=== PATIENT | male | born 1980 | race Caucasian/White ===

== ENCOUNTER 2018-09-22 20:14 | Emergency (ER) | payer OTHER ==
[2018-09-22] MEDS ORDERED: ETOMIDATE 2 MG/ML 10 ML VIAL IVP STA (20:43)
--- NOTE | 2018-09-22 21:01 | XR ---
Right ankle 2 views. History pain. Comparison none. FINDINGS: There is a posterior dislocation of the ankle joint. There is oblique fracture distal shaft of the fi bula with anterior angulation. There is transverse fracture of the medial malleolus. There is also la teral subluxation of the talus. There is an Achilles calcaneal spur. Posterior malleolus appears inta ct. IMPRESSION: There is posterior bimalleolar fracture dislocation of the right ankle.
[2018-09-22] MEDS ORDERED: PROPOFOL 10 MG/ML 20 ML VIAL IV ONE (21:15)
--- NOTE | 2018-09-22 21:32 | XR ---
Right ankle 2 views. History post reduction. Comparison today. FINDINGS: There is bimalleolar fracture of the right ankle. There is a cast. There is anatomic reduction of the ankle joint. Major fragments are in reasonable position. The medial malleolus fragment is not well s een. There is reduction of the dislocated ankle joint. IMPRESSION: Significant improvement.
[2018-09-22 21:56] VITALS: PULSE 80; RESP 18
--- NOTE | 2018-09-22 22:17 | ED ---
General Adult HPI - General Chief complaint: Extremity Injury, Lower Stated complaint: Fall, Ankle injury Time Seen by Provider: 09/22/18 20:17 Source: patient, EMS, RN notes reviewed, old records reviewed Mode of arrival: EMS Limitations: no limitations - History of Present Illness Initial comments: 38 -year-old male presents status post fall with right ankle injury. Patient brought in by EMS with obvious deformity of the right ankle, diminished past several days palpable by EMS. Patient complaining of 5 out of 10 pain in the right ankle. No knee pain, no hip pain, no head neck or back injury. Patient is otherwise healthy. - Related Data Previous Rx's Medication Instructions Recorded Ibuprofen [Motrin] 600 mg PO Q8HR PRN #24 tab 09/22/18 Allergies Allergy/AdvReac Type Severity Reaction Status Date / Time No Known Allergies Allergy Verified 09/22/18 21:22 Review of Systems ROS Statement: Those systems with pertinent positive or pertinent negative responses have been documented in the HPI. ROS Other: All systems not noted in ROS Statement are negative. Past Medical History Past Medical History: No Reported History History of Any Multi-Drug Resistant Organisms: None Reported Past Surgical History: No Surgical Hx Reported Past Psychological History: No Psychological Hx Reported Smoking Status: Never smoker Past Alcohol Use History: None Reported Past Drug Use History: None Reported General Exam Limitations: no limitations General appearance: alert, in no apparent distress Head exam: Present: atraumatic, normocephalic Eye exam: Present: normal appearance, PERRL, EOMI Neck exam: Present: normal inspection. Absent: tenderness, meningismus Respiratory exam: Present: normal lung sounds bilaterally. Absent: respiratory distress, wheezes Cardiovascular Exam: Present: regular rate, normal rhythm GI/Abdominal exam: Present: soft. Absent: distended, tenderness Extremities exam: Present: other (Deformity right ankle, no injury to the knee, or hip. There is distal past prior to reduction although weak. Sensation intact) Course Vital Signs 09/22/18 09/22/18 09/22/18 20:22 20:43 21:00 Temperature 98.6 F Pulse Rate 93 82 75 Respiratory 16 20 22 Rate Blood Pressure 160/107 165/105 138/100 O2 Sat by Pulse 97 99 99 Oximetry 09/22/18 09/22/18 21:03 21:55 Temperature Pulse Rate 81 80 Respiratory 20 18 Rate Blood Pressure 150/97 154/97 O2 Sat by Pulse 100 99 Oximetry Procedures - [place] Protocol (Time Out) Procedure Performed:: reduction right ankle Performing Provider: Bryce Tong Nurse: Walter Farr Respiratory Therapist: Sondra Renteria Patient Identification (2 identifiers required): Chart, Verbal, Arm Band, Name, Birthdate, Medical Record Number Site: right ankle Site Marked: Yes Final Confirmation: Procedure, Site, Patient Position, Radiographs, Confirmed w/ Provider - Orthopedic Fracture Reduction Fracture #1 Consent Obtained: written consent Side: right Fracture Reduction Location: tibia, fibula Analgesia: procedural sedation Technique: direct manipulation, traction/counter-traction Post Reduction X-rays Demonstrate: anatomical reduction Post-Reduction Neuro Exam: intact Post-Reduction Vascular Exam: intact Splint Applied: Yes Patient Tolerated Procedure: well - Orthopedic Splinting/Casting Injury #1 Side: right Lower Extremity Injury Location: ankle Lower Extremity Immobilizer: posterior splint, stirrup splint Other Orthopedic Equipment: crutches - Procedural Sedation Procedural Sedation Start Time: 20:43 Procedural Sedation Stop Time: 21:20 Indications: fracture/dislocation reduction ASA Class: I Mallampati Airway Score: 2 Preparation: laboratory monitor applied, pulse oximeter, capnometry used, supplemental O2 applied, suction/airway equipment at bedside, IV secured IV Propofol Dose (mgs): 100 Complications: none Patient Tolerated Procedure: well Medical Decision Making - Medical Decision Making 38 -year-old male with fracture dislocation right ankle. This is reduced under conscious sedation in the emergency department. Patient tolerates well. He is placed in a posterior mold and ankle stirrup. I did discuss case with Dr. Gomez, recommend outpatient follow-up. Recommended elevation and ice. Patient prescribed Motrin, he does not want any narcotic pain medication. Disposition Clinical Impression: Bimalleolar ankle fracture, Ankle dislocation Disposition: HOME SELF-CARE Condition: Good Instructions (If sedation given, give patient instructions): Moderate Sedation (ED), Ankle Fracture (ED), Ankle Dislocation (ED) Prescriptions: Ibuprofen [Motrin] 600 mg PO Q8HR PRN #24 tab PRN Reason: Pain Is patient prescribed a controlled substance at d/c from ED?: No Referrals: None,Stated [Primary Care Provider] - 1-2 days Kang Gomez MD [Medical Doctor] - 1-2 days Time of Disposition: 22:16
[2018-09-22 22:29] VITALS: BP 154/84; TEMP 98
== END 2018-09-22 22:29 | disposition home or self-care (01) ==
LOC: EC 20:14
DX: S82.841A Displaced bimalleolar fracture of right lower leg, initial encounter for closed fracture (principal); R29.898 Other symptoms and signs involving the musculoskeletal system; W00.0XXA Fall on same level due to ice and snow, initial encounter; Y92.89 Other specified places as the place of occurrence of the external cause
CPT/HCPCS: 73600; 99284; 27810; 99152; 99153; J2704

== ENCOUNTER 2018-10-07 12:47 | Day surgery (SDC) | payer OTHER ==
[~2018-10-07 12:47] MED LIST: DEXAMETHASONE SOD PHOSPHATE 10 MG/ML 1 ML VIAL IV ONE; HYDROmorphone 0.5 MG/0.5 ML SYRINGE IVP PRN; LIDOCAINE 1% 20 ML VIAL (10MG/ML) FOR IV START INTRADERMA PRN; MIDAZOLAM 2 MG/2 ML VIAL IV PRN; ONDANSETRON 4 MG/2 ML VIAL IVP ONE; SCOPOLAMINE 1.5MG/72HR PATCH TRANSDERM ONE; ceFAZolin IN SWFI 2 GM/20 ML SYRINGE IVP ONE
[2018-10-07] MEDS: LACTATED RINGERS 1,000 ML IV SCH ×2 (13:25→22:28)
[2018-10-07] MEDS ORDERED: MIDAZOLAM 2 MG/2 ML VIAL IVP ONE (14:52)
[2018-10-07] MEDS ORDERED: SUCCINYLCHOLINE CHLORIDE 100 MG/5 ML SYR IV ONE (15:13)
[2018-10-07] MEDS ORDERED: LIDOCAINE 1% INJ 10MG/ML (20 ML MDV) ONE (15:13)
[2018-10-07] MEDS ORDERED: KETOROLAC 30 MG/ML 1 ML VIAL ONE (15:13)
[2018-10-07] MEDS ORDERED: PROPOFOL 10 MG/ML 20 ML VIAL IV ONE (15:13)
[2018-10-07] MEDS ORDERED: ROCURONIUM BROMIDE 10 MG/ML 10 ML VIAL IV ONE (15:13)
[2018-10-07] MEDS ORDERED: BUPIVACAIN-EPI 0.5%-1:200,000 30 ML VIAL ONE (15:13)
[2018-10-07] MEDS ORDERED: fentaNYL (PF) 50 MCG/ML 2 ML AMP ONE (15:13)
[2018-10-07] MEDS ORDERED: HYDROmorphone (PF) 1 MG/ML ONE (15:13)
[2018-10-07] MEDS ORDERED: MIDAZOLAM 2 MG/2 ML VIAL ONE (15:13)
--- NOTE | 2018-10-07 15:30 | P.ONQ ---
Anesthesiology Proc Note - PNB - Peripheral Nerve Block Performed Right Adductor Canal Single Time Out Performed: Yes Procedure Start Time: 14:51 Procedure Stop Time: 14:55 Indication: Acute Post-Operative Pain, Analgesia, Requested by physician Sedation Type: Awake Preparation: Sterile Prep Position: Supine Catheter: None Needle Types: On-Q Needle Size: 100mm (4") Needle Gauge: 21 Technique: Ultrasound Injectate: Other (see comment) (0.5% bupivacaine with 1:200k epi 20cc) Blood Aspirated: No Pain Paresthesia on Injection Noted: No Resistance on Injection: Normal Events: Uneventful and Well Tolerated
--- NOTE | 2018-10-07 15:31 | P.ONQ ---
Anesthesiology Proc Note - PNB - Peripheral Nerve Block Performed Right Popliteal Single Time Out Performed: Yes Procedure Start Time: 14:56 Procedure Stop Time: 15:01 Indication: Acute Post-Operative Pain, Analgesia, Requested by physician Sedation Type: Awake Preparation: Sterile Prep Position: Supine Catheter: None Needle Types: On-Q Needle Size: 100mm (4") Needle Gauge: 21 Technique: Ultrasound Injectate: Other (see comment) (0.5 bupivaciane with 1:200k epi 20cc) Blood Aspirated: No Pain Paresthesia on Injection Noted: No Resistance on Injection: Normal Events: Uneventful and Well Tolerated
[2018-10-07] MEDS ORDERED: HYDROcodone/APAP 5-325MG 1 EACH TAB PO PRN ×2 (17:38)
[2018-10-07] MEDS ORDERED: hydrOXYzine PAMOATE 25 MG CAP PO PRN (17:38)
[2018-10-07] MEDS ORDERED: SENNOSIDES-DOCUSATE SODIUM 1 EACH TAB PO PRN (17:38)
[2018-10-07] MEDS ORDERED: ONDANSETRON 4 MG/2 ML VIAL IVP PRN (17:38)
[2018-10-07] MEDS ORDERED: HYDROmorphone 0.5 MG/0.5 ML SYRINGE IVP PRN ×2 (17:38)
[2018-10-07] MEDS ORDERED: HYDROmorphone 1 MG/ML 1 ML SYRINGE IVP PRN (17:38)
--- NOTE | 2018-10-07 17:41 | P.OP ---
Date of Procedure: 10/07/18 Preoperative Diagnosis: Right trimalleolar ankle fracture dislocation Postoperative Diagnosis: Same Procedure(s) Performed: 1. Open reduction internal fixation of right Riavs C lateral malleolus fracture and medial malleolus fracture 2. Open reduction internal fixation of right ankle syndesmotic disruption 3. Nonoperative management of right posterior malleolus and Chaput tubercle avulsion fractures 4. Manual application of joint stress by physician for radiography, right ankle 5. Application of short-leg splint by physician, right ankle Anesthesia: ENDER, regional Surgeon: Kang Gomez [employer] Magistrate #1: Sukhi Burrell Estimated Blood Loss (ml): 50 IV fluids (ml): 1,200 Pathology: none sent Condition: stable Disposition: PACU Indications for Procedure: The patient is a very pleasant is a healthy 38-year-old male who sustained an isolated right ankle fracture dislocation several weeks ago when he slipped and fell into a hole. He was initially seen in the ER where closed reduction was performed. He was then referred to our office. I met with the patient preoperatively discuss treatment. I recommended operative fixation of his ankle. We discussed the potential risks and complications of surgery including but not limited to risk of anesthesia, superficial infection, deep infection, delayed wound healing, superficial wound necrosis, nonunion of the fracture site , malunion of the fracture site, not reduction of the syndesmosis, malreduction of the ankle mortise, failure of fixation hardware, postoperative displacement of the fracture or ankle mortise, systematic hardware, chronic pain, chronic swelling, DVT, PE, and inability to regain preinjury level of function, posterior medical arthritis, and possibly loss of life or limb. The patient voiced his understanding of all these potential complications and also acknowledged the potential for other less common complications. He provided his verbal and written consent to go forward with surgery. Description of Procedure: Patient is a propofol in the correct right leg was marked with my initials. I reviewed the consent form with the patient and his family. All their questions were answered. The patient was then brought back to the operating room after popliteal and saphenous nerve block was given by anesthesia. He was transferred onto an or table her preoperative antibiotics and a general anesthetic were administered. A tourniquet was then applied to the proximal aspect of the right leg. Comparison x-rays of the left ankle were taken including a true talar dome overlap lateral. The left leg was secured to the table with foam and tape. A bump was placed under the right buttock internally rotating the leg. A ramp was placed under the right leg. The right leg was then prepped and draped in the standard sterile fashion. A timeout was then performed identifying the correct patient, operative extremity, and procedure. The patient's leg was elevated, exsanguinated with an Esmarch bandage, and the tourniquet was inflated to 250 mmHg. I began by outlining a longitudinal lateral incision over the distal fibula. Skin incision was made with a scalpel. Dissection was carried down carefully through subcutaneous tissue with tenotomy scissors. The superficial peroneal nerve was identified and carefully retracted. The fascia over the peroneal muscles was incised proximally and the periosteum over the fibula was incised distally. The fracture was carefully identified and debrided. Lobster claws were used to grasp the shaft of the fibula proximal and distal to the fracture and longitudinal traction was pulled. The fracture edges were keyed in and the fibula was anatomically reduced. A nonlocking 2.0 mm lag screw was placed across the fracture generating excellent compression. A 12 hole one third tubular plate was contoured over the patient's fibula. Nonlocking screws were placed proximally and distally to the fracture bringing the plate down to bone. Additional nonlocking screws were placed proximally and distally to the fracture so that there were 3 points of fixation proximally and distally. Attention was then turned medially. A longitudinal incision was made over the small medial malleolus fracture. The fracture was identified and carefully debrided. A 2.0 mm drill hole was made just proximal to the fracture. One kaz of a vudny-eg-oxrcy reduction clamp was placed in this hole and the second kaz was placed directly over the tip of the medial malleolus. A 2.0 mm drill was used to create a path for a fully threaded 2.7 screw across the medial malleolus avulsion fracture. Due to the size of the fracture fragment I was not able to place a second screw. The reduction clamp was removed and the reduction of the medial malleolus was maintained with the single screw. Attention was then once again turned laterally. Dissection was carried anterior to the distal fibula to visualize the incisura. There was a very small avulsion fracture fragment off of Chaput's tubercle. The fibula was gently reduced into the incisura using the thumb technique and then an 8 cm Rivas reduction clamp was used to hold the fibula reduced within the incisura. A single 4.0 mm syndesmotic screw was placed from the fibula into the tibia. The Chaput tubercle fragment was not large enough to accommodate a screw. Final fluoroscopic images were taken including a to mortise view which showed the fibula out to length, both fractures reduced, and the talus anatomically reduced within the ankle mortise. A manual external rotation stress x-ray was taken which showed no widening of the medial clear space or incisura area a true lateral of the ankle showed the talar dome centered under the plafond and. The fibula appeared symmetric to the comparison x-ray of the contralateral ankle. Both wounds were copiously irrigated and closed in layers. Brown quarter inch stretchy Steri-Strips were placed over both incisions. A sterile dressing consisting of Betadine soaked Adaptic, 4 x 4, and web roll was applied. A bulky Michael splint was placed with the ankle at neutral. The patient was then awoken from his anesthetic, transferred to a gurney, and brought to PACU without the procedure well. Sukhi Ashanti PAC was required as a skilled physician assistant for patient positioning, surgical exposure, retraction, reduction of fracture, closure of wounds and application of splint. Plan: The patient is going to be discharged home as an outpatient if his pain is adequately controlled with the block. He is to aggressively ice and elevate his leg to help with aiming control and swelling resolution. History main strictly nonweightbearing on his operative leg. He will follow-up in the office in 2 weeks for splint removal, nonweightbearing x-rays out of the splint , and wound inspection.
[2018-10-07] MEDS ORDERED: LACTATED RINGERS 1,000 ML IV ONE (17:59)
[2018-10-07 19:01] VITALS: BMI 76.8
[2018-10-07 19:20] LABS: Basophils % (A) 0 %; Eosinophils % (A) 0 %; HCT 47.1 % (39.0-53.0); HGB 15.4 gm/dL (13.0-17.5); Lymphocytes # (A) 0.8 k/uL (1.0-4.8); Lymphocytes % (A) 8 %; MCH 29.4 pg (25.0-35.0); MCHC 32.8 g/dL (31.0-37.0); MCV 89.8 fL (80.0-100.0); Monocytes # (A) 0.2 k/uL (0-1.0); Monocytes % (A) 2 %; Neutrophils % (A) 89 %; Platelet Count 352 k/uL (150-450); RBC 5.25 m/uL (4.30-5.90); WBC 10.1 k/uL (3.8-10.6)
--- NOTE | 2018-10-07 22:09 | FL ---
EXAMINATION TYPE: FL guidance operating room, XR ankle complete RT DATE OF EXAM: 10/07/2018 CLINICAL HISTORY: . Ankle fracture. TECHNIQUE: Fluoroscopy. Complete 2 views right ankle. COMPARISON: Right ankle x-rays September 22, 2018. FINDINGS: Fluoroscopic guidance was provided during open reduction and internal fixation procedure p erformed by Dr. Gomez. A total of 56 seconds of fluoroscopic time was utilized during the procedu re and 6 spot intraoperative images are acquired. Intraoperative images acquired show placement of a lateral fixating plate with additional fixating screw through distal tibial and tibial metadiaphysis and fixating screw through medial malleolus fractures. Alignment is satisfactory on the intraoperativ e images provided. IMPRESSION: As Above.
[2018-10-07] MEDS: ceFAZolin IN SWFI 2 GM/20 ML SYRINGE IVP SCH (23:48)
[2018-10-08] MEDS: LACTATED RINGERS 1,000 ML IV SCH ×2 (04:20→05:27)
[2018-10-08] MEDS: ceFAZolin IN SWFI 2 GM/20 ML SYRINGE IVP SCH (08:04)
[2018-10-08 08:38] VITALS: BP 148/80; PULSE 94; RESP 14; TEMP 97.6
[2018-10-08] MEDS ORDERED: ENOXAPARIN 40 MG/0.4 ML SYRINGE SQ SCH (09:00)
--- NOTE | 2018-10-08 17:07 | P.DS ---
Providers Expected date of discharge: 10/08/18 Attending physician: Kang Gomez Primary care physician: Stated None Hospital Course: This patient is a 38-year-old male who sustained a fall resulting in a right trimalleolar ankle fracture dislocation. Patient was initially seen in the [facility] ER, where closed reduction was performed. He was then seen in the office by Dr. Gomez for surgical planning and was placed into a well- padded bulky Michael splint. Patient underwent an open reduction and internal fixation of the right trimalleolar ankle fracture on 10/07/[address] Gomez. The procedure is performed without complication or sequelae. The patient is doing well postoperatively. Vital signs are stable on postop day #2. The patient is examined bedside this morning. He states his pain is very well- controlled currently, his nerve block has not yet worn off. He states he feels well and has no new complaints today. He denies chest pain, shortness of breath, nausea, vomiting. On examination, the patient is sitting up in bed in no acute distress. Patient is alert and orientated x3. On inspection of the right lower extremity, there is a bulky Michael splint in place. Splint is clean, dry, intact. Patient is able to wiggle right toes. The toes are warm and well-perfused with brisk capillary refill. Sensation is intact to light touch not assessed due nerve block. The left calf is soft and non-tender to palpation. The patient is discharged home pending today in good condition. Patient Condition at Discharge: Fair Plan - Discharge Summary Discharge Rx Participant: Yes New Discharge Prescriptions: New Aspirin 325 mg PO DAILY #14 tab Docusate [Colace] 100 mg PO BID #60 capsule HYDROcodone/APAP 10-325MG [Butler 10-325] 1 tab PO Q6HR PRN 7 Days #30 tab PRN Reason: Pain oxyCODONE HCL/ACETAMINOPHEN [Percocet 5-325 mg] 1 tab PO Q6HR PRN 7 Days #10 tab PRN Reason: Severe Pain No Action Ibuprofen [Motrin] 600 mg PO Q8HR PRN #24 tab PRN Reason: Pain Discharge Medication List Ibuprofen [Motrin] 600 mg PO Q8HR PRN #24 tab 09/22/18 [Rx] Aspirin 325 mg PO DAILY #14 tab 10/07/18 [Rx] Docusate [Colace] 100 mg PO BID #60 capsule 10/07/18 [Rx] HYDROcodone/APAP 10-325MG [Butler 10-325] 1 tab PO Q6HR PRN 7 Days #30 tab 10/07/18 [Rx] oxyCODONE HCL/ACETAMINOPHEN [Percocet 5-325 mg] 1 tab PO Q6HR PRN 7 Days #10 tab 10/07/18 [Rx] Follow up Appointment(s)/Referral(s): Kang Gomez MD [Medical Doctor] - 10/23/18 1:30 pm Patient Instructions/Handouts: Pain Management After Surgery (DC), ORIF of an Ankle Fracture (DC) Activity/Diet/Wound Care/Special Instructions: -Strict non-weight bearing on your operative leg. Do not remove your splint; Keep splint clean, dry, and intact -Use crutches, knee scooter, or a walker to ambulate after surgery. -Elevate and ice operative leg to help reduce swelling and control pain. -Take pain medications as prescribed. Take Colace as a stool softener. Take aspirin as prescribed for blood clot prevention. -Follow-up appointment with Dr. Gomez in the office in 2 weeks. -Call the office with any questions or concerns, Discharge Disposition: HOME SELF-CARE
== END 2018-10-08 09:15 | disposition home or self-care (01) ==
LOC: OR 12:47 → 4SSUR 18:03 → OR 10-08 09:15
PROVIDERS: ATTEND Orthopaedic Surgery
DX: S82.851A Displaced trimalleolar fracture of right lower leg, initial encounter for closed fracture (principal); S93.431A Sprain of tibiofibular ligament of right ankle, initial encounter; W17.2XXA Fall into hole, initial encounter; Y93.01 Activity, walking, marching and hiking; Y92.410 Unspecified street and highway as the place of occurrence of the external cause; Z79.82 Long term (current) use of aspirin
CPT/HCPCS: 94760; 27822; 27829; 97161; 64450; 64447; 85025; 73610; C1713; J2250; J1100; J2405; J2001; J1650; J3010; J1885; J1170; J0330; J2704; J0690 ×2; 64493

== ENCOUNTER 2020-06-10 21:25 | Emergency (ER) | payer OTHER ==
[2020-06-10 21:31] VITALS: BP 156/93; PULSE 89; RESP 20; TEMP 98
[2020-06-10] MEDS ORDERED: CEPHALEXIN 500 MG CAP PO STA (22:06)
--- NOTE | 2020-06-10 22:10 | ED ---
General Adult HPI - General Chief complaint: Skin/Abscess/Foreign Body Stated complaint: Spider Bite Source: patient Mode of arrival: ambulatory Limitations: no limitations - History of Present Illness Initial comments: 39-year-old male with no reported medical history who presents to the emergency room with multiple raised areas of redness to his right lower leg area patient s tates that he brought out a comforter from the closet and was concerned that maybe he sustained some bug bites. He also is one lesion on his lower back. He has been putting calamine lotion on the lesions because they're itchy. Denies contact with any new substances to include foods, environmental exposures or medications. No sensation in his airway is closing off. No abnormal bruising or bleeding. Other alleviating, precipitating or modifying factors - Related Data Previous Rx's Medication Instructions Recorded Ibuprofen [Motrin] 600 mg PO Q8HR PRN #24 tab 09/22/18 Aspirin 325 mg PO DAILY #14 tab 10/07/18 Docusate [Colace] 100 mg PO BID #60 capsule 10/07/18 HYDROcodone/APAP 10-325MG [Carpenter 1 tab PO Q6HR PRN 7 Days #30 tab 10/07/18 10-325] oxyCODONE HCL/ACETAMINOPHEN 1 tab PO Q6HR PRN 7 Days #10 tab 10/07/18 [Percocet 5-325 mg] Cephalexin [Keflex] 500 mg PO Q6HR 1 Days #20 cap 06/10/20 Hydrocortisone Cream 1 applic TOPICAL TID #30 gm 06/10/20 [Hydrocortisone 2.5% Cream] Allergies Allergy/AdvReac Type Severity Reaction Status Date / Time No Known Allergies Allergy Verified 06/10/20 21:30 Review of Systems ROS Statement: Those systems with pertinent positive or pertinent negative responses have been documented in the HPI. ROS Other: All systems not noted in ROS Statement are negative. Past Medical History Past Medical History: No Reported History History of Any Multi-Drug Resistant Organisms: None Reported Past Surgical History: No Surgical Hx Reported Past Anesthesia/Blood Transfusion Reactions: No Reported Reaction Past Psychological History: No Psychological Hx Reported Smoking Status: Never smoker Past Alcohol Use History: None Reported Past Drug Use History: None Reported - Past Family History Mother Family Medical History: No Reported History General Exam Limitations: no limitations Course Vital Signs 06/10/20 21:28 Temperature 98.0 F Pulse Rate 89 Respiratory 20 Rate Blood Pressure 156/93 O2 Sat by Pulse 99 Oximetry Medical Decision Making - Medical Decision Making Upon arrival patient is placed in room 5. A thorough history and physical exam was performed. Rash appears consistent with possible contact dermatitis versus eczema plaques. Discussed treatment with hydrocortisone cream. Patient does have some overlying excoriations with redness and therefore will be covered with Keflex. Patient has established care with Dr. Rudolph. I recommended follow-up with him for further treatment. Patient understood. Patient will be discharged home at this time. Return to the room for any new or worsening symptoms Disposition Clinical Impression: Contact dermatitis Disposition: HOME SELF-CARE Condition: Stable Instructions (If sedation given, give patient instructions): Contact Dermatitis (ED) Additional Instructions: Apply the cream 3 times daily to the affected area. Take antibiotics as dire cted. Follow up with Dr. Rudolph for further evaluation Prescriptions: Hydrocortisone Cream [Hydrocortisone 2.5% Cream] 1 applic TOPICAL TID #30 gm Cephalexin [Keflex] 500 mg PO Q6HR 1 Days #20 cap Is patient prescribed a controlled substance at d/c from ED?: No Referrals: None,Stated [Primary Care Provider] - 1-2 days Pablo Rudolph MD [STAFF PHYSICIAN] - 1-2 days Time of Disposition: 22:10
== END 2020-06-10 22:56 | disposition home or self-care (01) ==
LOC: EC 21:25
DX: L25.9 Unspecified contact dermatitis, unspecified cause (principal)
CPT/HCPCS: 99282